=== PATIENT | female | born 2005 | race Two or more races ===

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

== ENCOUNTER 2024-05-03 05:28 | Emergency (ER) | payer MEDICAID ==
[~2024-05-03] VITALS: Ht 157.5 cm; Wt 171.0 kg
[2024-05-03 07:17] LABS: Basophils # (auto) 0.1 10 ^3/uL (0-0.2); Basophils % (auto) 0.8 % (0.0-2.0); Eosinophils # (auto) 0.2 10 ^3/uL (0-0.8); Eosinophils % (auto) 2.1 % (0.0-7.0); Hematocrit 39.6 % (36.0-46.0); Hemoglobin 13.5 g/dL (12.2-16.2); Lymphocytes # (auto) 2.5 10 ^3/uL (0.4-5.4); Lymphocytes % (auto) 27.7 % (10.0-50.0); Mean Corpuscular Hemoglobin 28.9 pg (28.0-32.0); Mean Corpuscular Hgb Conc. 34.1 g/dL (32.0-36.0); Monocytes # (auto) 0.9 10 ^3/uL (0-1.3); Monocytes % (auto) 9.5 % (0.0-12.0); Neutrophils # (auto) 5.4 10 ^3/uL (1.6-8.6); Neutrophils % (auto) 59.9 % (37.0-80.0); Nucleated Red Blood Cells % 0.3 %; Platelet Count (auto) 316 10^3/uL (140-450); Red Blood Cells 4.65 10^6/uL (4.0-5.20); Red Cell Distribution Width 13.6 % (11.8-14.3)
[2024-05-03 07:33] LABS: Chloride 106 mmol/L (98-107); Potassium 4.2 mmol/L (3.5-5.1); Sodium 140 mmol/L (136-145)
[2024-05-03 07:34] LABS: Anion Gap 8 (5-15); Carbon Dioxide 26 mmol/L (20-31)
[2024-05-03 07:35] LABS: Calcium 10.3 mg/dL (8.7-10.4)
[2024-05-03 07:39] LABS: Glucose 93 mg/dL (74-106)
[2024-05-03 07:40] LABS: BUN/Creatinine Ratio 12.2 (10.0-20.0); Blood Urea Nitrogen 9 mg/dL (9-23)
[2024-05-03] MEDS ORDERED: PANT40TA2 PO (08:10)
[2024-05-03] MEDS: PANTOPRAZOLE 40 MG TAB PO ONE (08:27)
[2024-05-03] MEDS: HYDROcodone-ACET 5/325MG TAB PO ONE (08:28)
[2024-05-03] MEDS ORDERED: CEPH250C PO (09:30)
[2024-05-03 09:36] VITALS: BP 107/74; PULSE 71; RESP 16; TEMP 98.4; O2SAT 99
== END 2024-05-03 09:40 | disposition home or self-care (01) ==
LOC: EDBD 05:28 → ER 05:28
DX: K56.7 Ileus, unspecified (principal); R10.2 Pelvic and perineal pain; K29.70 Gastritis, unspecified, without bleeding; Z79.899 Other long term (current) drug therapy
CPT/HCPCS: 36415; 80048; 84702; 85025

== ENCOUNTER 2024-08-02 10:24 | Inpatient (IN) | payer MEDICAID ==
[~2024-08-02] VITALS: Ht 157.5 cm; Wt 88.0 kg
[~2024-08-02 10:24] MED LIST: CEPH250C PO; PANT40TA2 PO
[2024-08-02] MEDS: ACETAMINOPHEN 325 MG TAB PO ONE (10:50)
[2024-08-02] MEDS: SODIUM CHLORIDE 0.9% 1,000 ML IV ONE (11:02)
[2024-08-02 11:32] LABS: Basophils # (auto) 0 10 ^3/uL (0-0.2); Basophils % (auto) 0.4 % (0.0-2.0); Eosinophils # (auto) 0 10 ^3/uL (0-0.8); Eosinophils % (auto) 0.5 % (0.0-7.0); Hematocrit 38.7 % (36.0-46.0); Hemoglobin 12.9 g/dL (12.2-16.2); Lymphocytes # (auto) 0.4 10 ^3/uL (0.4-5.4); Lymphocytes % (auto) 10.3 % (10.0-50.0); Mean Corpuscular Hemoglobin 28.3 pg (28.0-32.0); Mean Corpuscular Hgb Conc. 33.3 g/dL (32.0-36.0); Mean Corpuscular Volume 85.2 fL (80.0-100.0); Monocytes # (auto) 0.5 10 ^3/uL (0-1.3); Monocytes % (auto) 12.4 % (0.0-12.0); Neutrophils # (auto) 3.1 10 ^3/uL (1.6-8.6); Neutrophils % (auto) 76.4 % (37.0-80.0); Nucleated Red Blood Cells % 0.1 %; Platelet Count (auto) 196 10^3/uL (140-450); Red Blood Cells 4.54 10^6/uL (4.0-5.20)
[2024-08-02 11:36] LABS: Chloride 103 mmol/L (98-107); Potassium 3.7 mmol/L (3.5-5.1); Sodium 138 mmol/L (136-145)
[2024-08-02 11:37] LABS: Anion Gap 7 (5-15); Calcium 9.5 mg/dL (8.7-10.4); Carbon Dioxide 28 mmol/L (20-31)
[2024-08-02 11:46] LABS: Blood Urea Nitrogen < 5 mg/dL (9-23); Glucose 117 mg/dL (74-106)
[2024-08-02 12:05] LABS: Urine Bacteria None Seen /hpf (None Seen)
[2024-08-02 12:18] LABS: Urine Blood Negative /uL (Negative); Urine Clarity Clear (Clear); Urine Color Light-Yellow (Yellow); Urine Protein, UAD TRACE (Negative); Urine Specific Gravity 1.018 (1.001-1.035); Urine Squamous Epithelial Cell FEW /hpf (<5); Urine Urobilinogen Normal (Negative); Urine WBC 1 /hpf (0 - 5)
--- NOTE | 2024-08-02 12:24 | DVH ---
CHEST RADIOGRAPH Indication: sob Technique: Single frontal view of the chest was obtained Comparison: None FINDINGS: Lines and Tubes: None Lungs: No focal consolidation. Pleura: No effusion. No pneumothorax. Cardiomediastinal contours: Unremarkable Bones: No acute osseous abnormality. IMPRESSION: 1. No acute cardiopulmonary disease.
--- NOTE | 2024-08-02 12:54 | ED.PDOC ---
History of Present Illness HPI Comments 18 y/o F presents with c/o with c/o flu-like symptoms, today. Patient endorses on being ill for the past 5x days, with multiple symptoms that include: shortness of breath, wheezing, nausea, vomiting, headache, and generalized bodyaches. Patient comments on inhaler use, yesterday, with breathing difficulty being at its worse, with no relief or improvement. She informs on said inhaler being a left-over prescription to when she was last diagnosed with PNA in the past. She denies having any chest pain, palpitations, fever, chills, urinary symptoms, or other associated symptoms or modifiers at this time. Chief Complaint: Nausea/Vomiting Time Seen by MD: 10:30 Primary Care Provider: BIJALK Reviewed Notes: Nurses Notes, Medications, Allergies Allergies: Coded Allergies: Rubella Vaccine (Verified Allergy, Intermediate, 01/03/16) SWELLING Home Meds Active Scripts Cephalexin (KEFLEX CAPSULE) 250 Mg Cp, 250 MG PO QID for 5 Days, #20 BOTTLE Prov:JOSH GARCIA MD 05/03/24 Pantoprazole Sodium Sesquihydr (Protonix) 40 Mg Tab, 40 MG PO DAILY for 5 Days, #5 TAB Prov:JOSH GARCIA MD 05/03/24 Information Source: Patient Mode of Arrival: Ambulatory Severity: Moderate Timing: Days Duration: Since onset Prehospital treatment: Other (see HPI) Past Medical History Past Medical History (Other): PNA, obesity Surgical History: Denies all surgeries PROFILER OPERATOR History: No Pertinent PROFILER OPERATOR History Family History Family History: Unknown, Unobtainable Social History Smoker: Non-Smoker Alcohol: Denies ETOH Use Drugs: Denies Drug Use Lives In: Home Respiratory: reports: shortness of breath, wheezing Gastrointestinal: reports: nausea, vomiting Neurological: reports: headache Musculoskeletal: reports: others (generalized bodyaches) All Other Systems: Reviewed and Negative (negative unless otherwise stated abov e or in HPI) Physical Exam General Appearance: Moderate Distress HEENT: Normal ENT Inspection, Pharynx Normal, TMs Normal Neck: Full Range of Motion, Non-Tender, Normal, Normal Inspection Respiratory: Chest Non-Tender, No Accessory Muscle Use, No Respiratory Distress Cardiovascular: Tachycardia Breast Exam: Deferred Gastrointestinal: No Organomegaly, Non Tender, No Pulsatile Mass, Normal Bowel Sounds, Soft Genitalia: Deferred Pelvic: Deferred Rectal: Deferred Extremities: No calf tenderness, Normal capillary refill, Normal inspection, Normal range of motion, Non-tender, No pedal edema Musculoskeletal : Apperance: Normal Neurologic: Alert, quill machine tender II-XII nml as Tested, No Motor Deficits, Normal Affect, Normal Mood, No Sensory Deficits Cerebellar Function: NOT DONE Reflexes: NOT DONE Skin: Dry, Normal Color, Warm Peripheral Pulses: 3+ Radial (R), 3+ Radial (L) Lymphatic: No Adenopathy Was a procedure done? Was a procedure done?: No Differential Dx Considerations may include: PNA, bronchitis, covid19, influenza, URI, viral syndrome X-Ray, Labs, Meds, VS Vital Signs Date Time Temp Pulse Resp B/P (MAP) Pulse Ox O2 Delivery O2 Flow Rate FiO2 08/02/24 12:14 97.9 08/02/24 10:50 99.9 08/02/24 10:49 99.9 140 20 116/72 (87) 96 99.9 08/02/24 10:31 101.2 134 16 117/76 (90) 97 Lab Test 08/02/24 11:02 08/02/24 11:00 Range/Units White Blood Count 4.0 L 4.4-10.8 10^3/uL Red Blood Count 4.54 4.0-5.20 10^6/uL Hemoglobin 12.9 12.2-16.2 g/dL Hematocrit 38.7 36.0-46.0 % Mean Corpuscular Volume 85.2 80.0-100.0 fL Mean Corpuscular Hemoglobin 28.3 28.0-32.0 pg Mean Corpuscular Hemoglobin Concent 33.3 32.0-36.0 g/dL Red Cell Distribution Width 14.0 11.8-14.3 % Platelet Count 196 140-450 10^3/uL Mean Platelet Volume 8.2 6.9-10.8 fL Neutrophils (%) (Auto) 76.4 37.0-80.0 % Lymphocytes (%) (Auto) 10.3 10.0-50.0 % Monocytes (%) (Auto) 12.4 H 0.0-12.0 % Eosinophils (%) (Auto) 0.5 0.0-7.0 % Basophils (%) (Auto) 0.4 0.0-2.0 % Neutrophils # (Auto) 3.1 1.6-8.6 10 ^3/uL Lymphocytes # (Auto) 0.4 0.4-5.4 10 ^3/uL Monocytes # (Auto) 0.5 0-1.3 10 ^3/uL Eosinophils # (Auto) 0 0-0.8 10 ^3/uL Basophils # (Auto) 0 0-0.2 10 ^3/uL Nucleated Red Blood Cells 0.1 % Sodium Level 138 136-145 mmol/L Potassium Level 3.7 3.5-5.1 mmol/L Chloride Level 103 98-107 mmol/L Carbon Dioxide Level 28 20-31 mmol/L Anion Gap 7 5-15 Blood Urea Nitrogen < 5 L 9-23 mg/dL Creatinine 0.83 0.550-1.02 mg/dL Glomerular Filtration Rate Calc 104 >90 mL/min BUN/Creatinine Ratio 6.0 L 10.0-20.0 Serum Glucose 117 H 74-106 mg/dL Calcium Level 9.5 8.7-10.4 mg/dL Beta HCG, Quantitative 1.7 1.5-4.2 mIU/mL Urine Color Light-yellow Yellow Urine Clarity Clear Clear Urine pH 7.0 5.0-9.0 Urine Specific [place] 1.018 1.001-1.035 Urine Protein Trace H Negative Urine Ketones Negative Negative Urine Blood Negative Negative /uL Urine Nitrite Negative Negative Urine Bilirubin Negative Negative Urine Urobilinogen Normal Negative mg/dL Urine Leukocyte Esterase Negative Negative /uL Urine RBC 2 0 - 4 /hpf Urine WBC 1 0 - 5 /hpf Urine Squamous Epithelial Cells Few <5 /hpf Urine Bacteria None seen None Seen /hpf Urine Glucose Normal Normal mg/dL Current Medications Medications (Trade) Dose Ordered Sig/Javid Route Start Time Stop Time Status Last Admin Acetaminophen (Tylenol Tablet) 650 mg ONCE ONCE PO 08/02/24 10:45 08/02/24 10:46 DC 08/02/24 10:50 Sodium Chloride 1,000 ml @ 1,000 mls/hr Q1H ONCE IV 08/02/24 11:00 08/02/24 11:59 DC 08/02/24 11:[address] [address] Ph: [phone] DIAGNOSTIC IMAGING Diagnostic Imaging Report : [id number] Signed PATIENT: LINDA ANGUIANO ACCT: [id number] UNIT: [id number] : 2005 LOC: ER ROOM / BED: / AGE / SEX: 18 / F ADM STATUS: REG ER SERVICE 1053 ORDERING PHYSICIAN: JOSH GARCIA MD PROCEDURE(s): CXRP - CHEST PORTABLE REASON: sob ORDER NUMBER(s): [id number], ACCESSION NUMBER(s): [id number] CHEST RADIOGRAPH Indication: sob Technique: Single frontal view of the chest was obtained Comparison: None FINDINGS: Lines and Tubes: None Lungs: No focal consolidation. Pleura: No effusion. No pneumothorax. Cardiomediastinal contours: Unremarkable Bones: No acute osseous abnormality. IMPRESSION: 1. No acute cardiopulmonary disease. ATED BY: LILLIE NY MD DICTATED DATE/TIME: 08/02/24 122 SIGNED BY: LILLIE NY MD SIGNED DATE/TIME: 08/02/24 1221 CC: Patient alert. Tachycardia. Complaining of shortness a breath. Has fever. Possible viral. Continues to have discomfort. Establish intravenous access. Was given fluids pain Placed on oxygen. Explained to the patient. Continue cardiac monitoring. Chest x-ray reviewed does not show any acute changes. Time of 1ST Reevaluation: 11:00 Reevaluation 1ST: Unchanged Patient Education/Counseling: Diagnosis, Treatment Family Education/Counseling: No Family Present Additional Information I reviewed the following notes from patient's past medical encounters: ED physician documentation on 05/03/24 The following tests were ordered, and results were reviewed by me: Beta QUANT, BMP, CBC, UA, CXR I reviewed and agreed with the following test results read by other providers: CXR I discussed treatment and results with medical personnel Departure 1 Departure Time of Disposition: 13:23 Impression: Primary Impression: Acute respiratory distress Additional Impressions: Tachycardia Pneumonitis Disposition: ADMITTED INPATIENT Admit to: Med Surg Condition: Guarded Critical Care Note Critical Care Time?: No Stability Stability form required: No Heart Score Heart Score: Heart Score Response (Comments) Value History N/A 0 EKG N/A 0 Age N/A 0 Risk Factors N/A 0 Troponin N/A 0 Total 0 I personally scribed for JOSH GARCIA MD ([email or web address]) on 08/02/24 at 12:54. Electronically submitted by Kole Hamlin ([email or web address]). JOSH GARCIA MD Aug 02, 2024 12:54
--- NOTE | 2024-08-02 14:56 | DVHHP2 ---
History of Present Illness Reason for Visit: Flu-like symptoms History of Present Illness This 18-year-old female patient with past medical history of pneumonia presented in the ED with a chief complaint of flu-like symptoms started five days ago. Patient reports symptoms associated with productive cough with phlegm, fever, sh ortness of breath, body aches, and wheezing. Denies sick exposure. The patient denies difficulty in breathing or other acute symptoms. Past Medical History Pneumonia Past Surgical History Denies Family History Reviewed, non-contributory to the management of this case. Past Social History The patient lives at home, denies smoking, alcohol or illicit drugs abuse. Review of Systems Constitutional: Yes: Fever, Chills; No: Sweats, Weakness, Malaise, Other Eyes: No: Pain, Vision change, Conjunctivae inflammation, Eyelid inflammation, Other, Redness ENT: No: Ear pain, Ear discharge, Nose pain, Nose discharge, Nose congestion, Mouth pain, Mouth swelling, Throat pain, Throat swelling, Other Respiratory: Cough, Shortness of breath, Wheezing; No: Dry, SOB with excertion, Hemoptysis, Pleuritic Pain, Sputum, Wheezing, Other Cardiovascular: No: Chest Pain, Palpitations, Orthopnea, Paroxysmal Noc. Dyspnea, Edema, Lt Headedness, Other Gastrointestinal: No: Nausea, Vomiting, Abdominal Pain, Diarrhea, Constipation, Melena, Hematochezia, Other Genitourinary: No Dysuria, No Frequency, No Incontinence, No Hematuria, No Retention, No Other Musculoskeletal: No: other, neck pain, shoulder pain, arm pain, back pain, hand pain, leg pain, foot pain Skin: No: Rash, Lesions, Jaundice, Bruising, Other Neurological: No: Weakness, Numbness, Incoordination, Change in speech, Confusion, Seizures, Other Allergies: Coded Allergies: Rubella Vaccine (Verified Allergy, Intermediate, 01/03/16) SWELLING Exam Vital Signs Vital Signs Date Time Temp Pulse Resp B/P (MAP) Pulse Ox O2 Delivery O2 Flow Rate FiO2 08/02/24 12:14 97.9 08/02/24 10:49 140 20 116/72 (87) 96 General Appearance: Alert, Oriented X3, Cooperative, mild distress HEENT: Atraumatic, PERRLA, EOMI, Mucous membr. moist/pink Respiratory: Clear to auscultation, Normal air movement Cardiovascular: Regular rate, Normal S1, Normal S2, No murmurs Abdominal: Normal bowel sounds, Soft, No tenderness Extremities: No clubbing, No cyanosis, No edema, Normal pulses, No tenderness/swelling Skin: No rashes, No breakdown, No significant lesion Neuro: Normal gait, Normal tone Psych/Mental Status: Mental status NL Labs/Xrays Labs Test 08/02/24 11:02 08/02/24 11:00 Range/Units White Blood Count 4.0 L 4.4-10.8 10^3/uL Red Blood Count 4.54 4.0-5.20 10^6/uL Hemoglobin 12.9 12.2-16.2 g/dL Hematocrit 38.7 36.0-46.0 % Mean Corpuscular Volume 85.2 80.0-100.0 fL Mean Corpuscular Hemoglobin 28.3 28.0-32.0 pg Mean Corpuscular Hemoglobin Concent 33.3 32.0-36.0 g/dL Red Cell Distribution Width 14.0 11.8-14.3 % Platelet Count 196 140-450 10^3/uL Mean Platelet Volume 8.2 6.9-10.8 fL Neutrophils (%) (Auto) 76.4 37.0-80.0 % Lymphocytes (%) (Auto) 10.3 10.0-50.0 % Monocytes (%) (Auto) 12.4 H 0.0-12.0 % Eosinophils (%) (Auto) 0.5 0.0-7.0 % Basophils (%) (Auto) 0.4 0.0-2.0 % Neutrophils # (Auto) 3.1 1.6-8.6 10 ^3/uL Lymphocytes # (Auto) 0.4 0.4-5.4 10 ^3/uL Monocytes # (Auto) 0.5 0-1.3 10 ^3/uL Eosinophils # (Auto) 0 0-0.8 10 ^3/uL Basophils # (Auto) 0 0-0.2 10 ^3/uL Nucleated Red Blood Cells 0.1 % Sodium Level 138 136-145 mmol/L Potassium Level 3.7 3.5-5.1 mmol/L Chloride Level 103 98-107 mmol/L Carbon Dioxide Level 28 20-31 mmol/L Anion Gap 7 5-15 Blood Urea Nitrogen < 5 L 9-23 mg/dL Creatinine 0.83 0.550-1.02 mg/dL Glomerular Filtration Rate Calc 104 >90 mL/min BUN/Creatinine Ratio 6.0 L 10.0-20.0 Serum Glucose 117 H 74-106 mg/dL Calcium Level 9.5 8.7-10.4 mg/dL Beta HCG, Quantitative 1.7 1.5-4.2 mIU/mL Urine Color Light-yellow Yellow Urine Clarity Clear Clear Urine pH 7.0 5.0-9.0 Urine Specific [place] 1.018 1.001-1.035 Urine Protein Trace H Negative Urine Ketones Negative Negative Urine Blood Negative Negative /uL Urine Nitrite Negative Negative Urine Bilirubin Negative Negative Urine Urobilinogen Normal Negative mg/dL Urine Leukocyte Esterase Negative Negative /uL Urine RBC 2 0 - 4 /hpf Urine WBC 1 0 - 5 /hpf Urine Squamous Epithelial Cells Few <5 /hpf Urine Bacteria None seen None Seen /hpf Urine Glucose Normal Normal mg/dL PROCEDURE(s): CXRP - CHEST PORTABLE REASON: sob ORDER NUMBER(s): [id number], ACCESSION NUMBER(s): [id number] CHEST RADIOGRAPH Indication: sob Technique: Single frontal view of the chest was obtained Comparison: None FINDINGS: Lines and Tubes: None Lungs: No focal consolidation. Pleura: No effusion. No pneumothorax. Cardiomediastinal contours: Unremarkable Bones: No acute osseous abnormality. IMPRESSION: 1. No acute cardiopulmonary disease. Assessment/Plan Assessment/Plan # acute respiratory failure # rule out influenza A # rule out COVID # hx of pneumonia Admit to medical unit Med neb treatment O2 to keep O2 sat > 92% # obesity Lifestyle modification counseled with regular exercise, diet and weight loss Medical plan discussed with patient and mom at the bedside Plan discussed with: Patient Date of Service: Aug 02, 2024 Billing Provider: JOHNNIE BHAT Common Visit Codes: [id number] INP/OBS CARE (HIGH) JOHNNIE BHAT Aug 02, 2024 14:56
[2024-08-02] MEDS ORDERED: IPRATROPIUM BROM 0.5 MG/2.5ML INH SOL NEB PRN (15:00)
[2024-08-02] MEDS ORDERED: ALBUTEROL SULF 2.5 MG/0.5ML(0.5%) NEB SOLN NEB PRN (15:00)
[2024-08-02 15:03] VITALS: BP 116/72; PULSE 140; RESP 20; TEMP 97.9; O2SAT 96
[2024-08-02] MEDS: cefTRIAXone 1GM/50ML D5W 50 ML IV ONE (17:19)
[2024-08-02] MEDS: ACETAMINOPHEN 500 MG TAB or CAP PO ONE (17:32)
[2024-08-02] MEDS: ONDANSETRON HCL 4 MG/2 ML VIAL IV PRN (17:36)
[2024-08-02 18:00] LABS: COVID19 ANTIGEN SOFIA FIA NEGATIVE (NEGATIVE); Rapid Influenza B Negative (Negative)
[2024-08-02 18:03] LABS: Rapid Influenza A Positive (Negative)
[2024-08-02 19:08] VITALS: PULSE 113; RESP 18; O2SAT 95
[2024-08-02] MEDS: ALBUTEROL SULF 2.5 MG/0.5ML(0.5%) NEB SOLN NEB SCH (19:08)
[2024-08-02] MEDS: IPRATROPIUM BROM 0.5 MG/2.5ML INH SOL NEB SCH (19:08)
[2024-08-02 19:14] VITALS: PULSE 120; RESP 20; O2SAT 98
[2024-08-03] VITALS (19 sets, daily range): BP systolic 110–126; BP diastolic 64–77; PULSE 91–124; RESP 16–20; TEMP 98.4–100; O2SAT 90–100
--- NOTE | 2024-08-03 07:12 | DVH ---
CLINICAL INFORMATION: 18 years old, Female; shortness of breath. TECHNIQUE: Single AP portable chest radiograph was obtained. COMPARISON: XY CHEST PORTABLE on DOS: 08/02/24 FINDINGS: Lungs: Mild bilateral interstitial opacities, slightly greater in the right lung. No dense focal cons olidation visualized. Cardiac: Heart size is within normal limits. Pulmonary vasculature: Mild prominence of the pulmonary vasculature. Mediastinum/bill: Unremarkable. Bones: No acute osseous abnormality identified. Other: No other significant findings. IMPRESSION: Mild bilateral interstitial opacities, may be seen with atypical infectious process in the appropriat e clinical setting, including viral infection. Correlate with clinical findings.
[2024-08-03 11:21] LABS: Hematocrit 35.6 % (36.0-46.0); Hemoglobin 11.7 g/dL (12.2-16.2); Mean Corpuscular Hemoglobin 28.1 pg (28.0-32.0); Mean Corpuscular Volume 85.2 fL (80.0-100.0); Platelet Count (auto) 159 10^3/uL (140-450); Red Blood Cells 4.18 10^6/uL (4.0-5.20); Red Cell Distribution Width 13.8 % (11.8-14.3); White Blood Cell 2.3 10^3/uL (4.4-10.8)
[2024-08-03 11:29] LABS: Basophils % (manual) 0 (0.0-2.0); Blast Cells 0; Eosinophils % (manual) 0 (0-7); Metamyelocytes % 0; Myelocytes % 0; Promyelocytes % 0; Reactive Lymphocytes 0
[2024-08-03 11:45] LABS: Alanine Aminotransferase 16 U/L (7-40); Alkaline Phosphatase 72 U/L (46-116); Anion Gap 6 (5-15); Aspartate Aminotransferase 19 U/L (13-40); BUN/Creatinine Ratio 7.1 (10.0-20.0); Bilirubin, Total 0.2 mg/dL (0.2-1.0); Blood Urea Nitrogen < 5 mg/dL (9-23); Calcium 9.5 mg/dL (8.7-10.4); Carbon Dioxide 29 mmol/L (20-31); Chloride 104 mmol/L (98-107); Glucose 125 mg/dL (74-106); Potassium 3.5 mmol/L (3.5-5.1); Sodium 139 mmol/L (136-145); Total Protein 6.1 g/dL (5.7-8.2)
[2024-08-03 12:47] LABS: Band Neutrophils % (manual) 1; Lymphocytes % (manual) 39 (10.0-50.0); Monocytes % (manual) 18 (0-12)
[2024-08-03 12:48] LABS: Platelet Estimate Adequate
--- NOTE | 2024-08-03 16:40 | DVHPN2 ---
Progress Note Date Seen: Aug 03, 2024 Medical Necessity Reason Pt with a Central, PICC or Fol: No Subjective Patient reports: No new complaints Review of Systems: HEENT:Normal, CVS:Normal, RESPIRATORY:Normal, GI:Normal, :Normal, MSK:Normal, NEURO:Normal Objective vital signs Vital Sign Date Time Temp Pulse Resp B/P (MAP) Pulse Ox O2 Delivery O2 Flow Rate FiO2 08/03/24 14:46 98 16 99 08/03/24 14:40 Room Air* 0 21 08/03/24 13:00 98.7 117/68 (84) 98.7 Total Intake and Output 08/02/24 08/02/24 08/03/24 15:00 23:00 07:00 Intake Total 50 ml 900 ml Output Total 2400 ml Balance 50 ml -1500 ml medications Current Medications Medications Dose Ordered Sig/Javid Route Start Time Stop Time Status Last Admin Dose Admin Ondansetron HCl 4 mg Q4HP PRN IV 08/02/24 15:00 08/02/24 17:36 4 MG Albuterol 2.5 mg Q4HPRN PRN NEB 08/02/24 15:00 Albuterol 2.5 mg Q6HR NEB 08/02/24 18:00 08/03/24 14:40 2.5 MG Ipratropium [place] 0.5 mg Q4HPRN PRN NEB 08/02/24 15:00 Ipratropium [place] 0.5 mg Q6HR NEB 08/02/24 18:00 08/03/24 14:40 0.5 MG Examination: GENERAL:Normal, HEENT:Normal, NECK:Normal, LUNGS:Normal, CVS:Normal, ABDOMEN:Normal, MSK:Normal, SKIN:Normal, NEURO:Normal, :Normal laboratory and microbiology Laboratory Tests 08/03/24 10:40 Test 08/03/24 10:40 Range/Units Serum Glucose 125 H 74-106 mg/dL Problem List/Assessment/Plan Problem List/Assessment/Plan #1 sepsis with influenza pneumonia: ivf, tamiflu, iv antibiotics, steroids #2 obesity Plan discussed with: Patient Date of Service: Aug 03, 2024 Billing Provider: ANITHA ROSE MD Common Visit Codes: [id number] INP/OBS CARE(HIGH) ANITHA ROSE MD Aug 03, 2024 16:40
[2024-08-03] MEDS ORDERED: ACETAMINOPHEN 325 MG TAB PO PRN (16:45)
[2024-08-03] MEDS ORDERED: OSELTAMIVIR 75 MG CAP PO ONE (16:45)
[2024-08-03] MEDS ORDERED: methylPREDNISolone SOD SUCC 40 MG/ML VL IV ONE (16:45)
[2024-08-03] MEDS: methylPREDNISolone SOD SUCC 40 MG/ML VL IV SCH (18:25)
[2024-08-03] MEDS: SODIUM CHLORIDE 0.9% 1,000 ML IV SCH (18:25)
[2024-08-03] MEDS: OSELTAMIVIR 75 MG CAP PO SCH (18:25)
[2024-08-03] MEDS: AZITHROMYCIN 500MG/ 250ML 250 ML IV ONE (18:43)
[2024-08-04] VITALS (10 sets, daily range): BP systolic 105–121; BP diastolic 64–72; PULSE 84–106; RESP 14–20; TEMP 36.8; O2SAT 95–100
[2024-08-04 07:34] LABS: Basophils # (auto) 0 10 ^3/uL (0-0.2); Basophils % (auto) 0.1 % (0.0-2.0); Eosinophils # (auto) 0 10 ^3/uL (0-0.8); Hematocrit 38.3 % (36.0-46.0); Hemoglobin 12.7 g/dL (12.2-16.2); Lymphocytes # (auto) 0.8 10 ^3/uL (0.4-5.4); Lymphocytes % (auto) 23.1 % (10.0-50.0); Mean Corpuscular Hemoglobin 28.2 pg (28.0-32.0); Mean Corpuscular Hgb Conc. 33.2 g/dL (32.0-36.0); Mean Corpuscular Volume 84.9 fL (80.0-100.0); Monocytes # (auto) 0.3 10 ^3/uL (0-1.3); Monocytes % (auto) 7.7 % (0.0-12.0); Neutrophils # (auto) 2.4 10 ^3/uL (1.6-8.6); Neutrophils % (auto) 69.1 % (37.0-80.0); Platelet Count (auto) 195 10^3/uL (140-450); Red Blood Cells 4.51 10^6/uL (4.0-5.20); Red Cell Distribution Width 13.9 % (11.8-14.3); White Blood Cell 3.5 10^3/uL (4.4-10.8)
[2024-08-04 07:41] LABS: Calcium 9.9 mg/dL (8.7-10.4); Chloride 105 mmol/L (98-107); Potassium 4.4 mmol/L (3.5-5.1); Sodium 140 mmol/L (136-145)
[2024-08-04 07:42] LABS: Anion Gap 8 (5-15); Carbon Dioxide 27 mmol/L (20-31)
[2024-08-04 07:53] LABS: Glucose 121 mg/dL (74-106)
[2024-08-04 07:54] LABS: BUN/Creatinine Ratio 7.7 (10.0-20.0); Blood Urea Nitrogen < 5 mg/dL (9-23)
[2024-08-04] MEDS: AZITHROMYCIN 500MG/ 250ML 250 ML IV SCH (11:21)
--- NOTE | 2024-08-04 13:11 | DVHDS2 ---
Discharge Summary Date of Admission Aug 02, 2024 at 14:52 Date of Discharge: Aug 04, 2024 Labs/Diagnostic Data: Laboratory Results Test 08/04/24 06:31 08/03/24 10:40 08/02/24 17:21 08/02/24 11:02 White Blood Count 3.5 10^3/uL (4.4-10.8) Red Blood Count 4.51 10^6/uL (4.0-5.20) Hemoglobin 12.7 g/dL (12.2-16.2) Hematocrit 38.3 % (36.0-46.0) Mean Corpuscular Volume 84.9 fL (80.0-100.0) Mean Corpuscular Hemoglobin 28.2 pg (28.0-32.0) Mean Corpuscular Hemoglobin Concent 33.2 g/dL (32.0-36.0) Red Cell Distribution Width 13.9 % (11.8-14.3) Platelet Count 195 10^3/uL (140-450) Mean Platelet Volume 8.1 fL (6.9-10.8) Neutrophils (%) (Auto) 69.1 % (37.0-80.0) Lymphocytes (%) (Auto) 23.1 % (10.0-50.0) Monocytes (%) (Auto) 7.7 % (0.0-12.0) Eosinophils (%) (Auto) 0.0 % (0.0-7.0) Basophils (%) (Auto) 0.1 % (0.0-2.0) Neutrophils # (Auto) 2.4 10 ^3/uL (1.6-8.6) Lymphocytes # (Auto) 0.8 10 ^3/uL (0.4-5.4) Monocytes # (Auto) 0.3 10 ^3/uL (0-1.3) Eosinophils # (Auto) 0 10 ^3/uL (0-0.8) Basophils # (Auto) 0 10 ^3/uL (0-0.2) Nucleated Red Blood Cells 0.0 % Sodium Level 140 mmol/L (136-145) Potassium Level 4.4 mmol/L (3.5-5.1) Chloride Level 105 mmol/L (98-107) Carbon Dioxide Level 27 mmol/L (20-31) Anion Gap 8 (5-15) Blood Urea Nitrogen < 5 mg/dL (9-23) Creatinine 0.65 mg/dL (0.550-1.02) Glomerular Filtration Rate Calc 130 mL/min (>90) BUN/Creatinine Ratio 7.7 (10.0-20.0) Serum Glucose 121 mg/dL (74-106) Calcium Level 9.9 mg/dL (8.7-10.4) Differential Total Cells Counted 100.0 (100) Neutrophils % (Manual) 42 (37.0-80.0) Band Neutrophils % (Manual) 1 Lymphocytes % (Manual) 39 (10.0-50.0) Monocytes % (Manual) 18 (0-12) Eosinophils % (Manual) 0 (0-7) Basophils % (Manual) 0 (0.0-2.0) Metamyelocytes % (manual) 0 Myelocytes % (Manual) 0 Promyelocytes % (Manual) 0 Blast Cells % (Manual) 0 Reactive Lymphocytes 0 Platelet Estimate Adequate Total Bilirubin 0.2 mg/dL (0.2-1.0) Aspartate Amino Transferase (AST) 19 U/L (13-40) Alanine Aminotransferase (ALT) 16 U/L (7-40) Alkaline Phosphatase 72 U/L (46-116) Total Protein 6.1 g/dL (5.7-8.2) Albumin 4.0 g/dL (3.2-4.8) Influenza Type A Antigen Positive (Negative) Influenza Type B Antigen Negative (Negative) SARS-CoV-2 Antigen (Rapid) Negative (NEGATIVE) Beta HCG, Quantitative 1.7 mIU/mL (1.5-4.2) Test 08/02/24 11:00 Urine Color Light-yellow (Yellow) Urine Clarity Clear (Clear) Urine pH 7.0 (5.0-9.0) Urine Specific [place] 1.018 (1.001-1.035) Urine Protein Trace (Negative) Urine Ketones Negative (Negative) Urine Blood Negative /uL (Negative) Urine Nitrite Negative (Negative) Urine Bilirubin Negative (Negative) Urine Urobilinogen Normal mg/dL (Negative) Urine Leukocyte Esterase Negative /uL (Negative) Urine RBC 2 /hpf (0 - 4) Urine WBC 1 /hpf (0 - 5) Urine Squamous Epithelial Cells Few /hpf (<5) Urine Bacteria None seen /hpf (None Seen) Urine Glucose Normal mg/dL (Normal) Other Laboratory Tests 08/04/24 06:31 Brief Hx & Hospital Course: see dictated note Condition at Discharge: Good Final Diagnosis/Problems List influenza Discharge Disposition: Home Discharge Instruct/Medications Diet: Regular Activity: No Restrictions, As Tolerated Follow Up/Referral: fu with pcp in 1 wk Medications: script to pharmacy Discharge Statement: "Patient was advised to return to the ER or call 911 if any headaches, dizziness, shortness of breath, chest pain, abdominal pain, bleeding, fevers, or worsening of medical condition. Patient was counseled about treatment plan, medications, possible side effects, patientverbalized understanding. All questions were answered to the best of my ability. This discharge took greater then 30 minutes in planning, reviewing documentation, counseling the patient, and discussing with other team members." ASSESSMENT ASSESSMENT Assessment influenza Date of Service: Aug 04, 2024 Billing Provider: ANITHA ROSE MD Common Visit Codes: [id number] DISCH DAY >30min ANITHA ROSE MD Aug 04, 2024 13:11
[2024-08-04] MEDS ORDERED: PRED20TA2 PO (13:13)
[2024-08-04] MEDS ORDERED: OSEL75CA5 PO (13:13)
[2024-08-04] MEDS ORDERED: AZITTAB2 PO (13:13)
--- NOTE | 2024-08-04 13:42 | DVHDS ---
DATE OF DISCHARGE: 08/04/2024 HISTORY OF PRESENT ILLNESS: The patient is a 18-year-old lady who came with history of cough, shortness of breath, wheezing and body aches. HOSPITAL COURSE: The patient had a chest x-ray that showed bilateral interstitial opacities. The patient was influenza A positive. She was placed on treatment with steroids along with Tamiflu. The patient's symptoms are now improved. The patient had a temperature of 103 at admission. She will now be discharged home to be on Zithromax 500 mg daily for 3 days, Tamiflu 75 mg p.o. b.i.d. for 5 days and prednisone 20 mg daily for 5 days. She will followup with her primary in 1 week. FINAL DIAGNOSES: Therefore, * Sepsis with influenza pneumonia. * Obesity. Time spent in discharge planning and review of plan with the patient and family was 38 minutes. MD WARREN Abreu/JULIANE TID: [id number] RECEIPT: [id number]
== END 2024-08-04 16:30 | disposition home or self-care (01) | DRG 720 ==
LOC: ER 10:24 → OVERFLOW 14:52 → WEST WING 08-03 02:35
PROVIDERS: ADMIT Registered Nurse; ATTEND Internal Medicine
DX: A41.89 Other specified sepsis (principal); E66.9 Obesity, unspecified; J10.01 Influenza due to other identified influenza virus with the same other identified influenza virus pneumonia; J98.4 Other disorders of lung; Z20.822 Contact with and (suspected) exposure to COVID-19; Z88.7 Allergy status to serum and vaccine; R06.03 Acute respiratory distress; Z68.54 Body mass index [BMI] pediatric, 95th percentile for age to less than 120% of the 95th percentile for age
CPT/HCPCS: 36415; 71045; 80048; 80053; 81001; 84702; 85007; 85025; 85027; 87426; 87804; 94640; 96365; 96375; G0378; J2405

== ENCOUNTER → 2024-10-21 | Outpatient (CLI) | payer MEDICAID ==
[~2024-10-21] MED LIST changes: +AZITTAB2 PO; +OSEL75CA5 PO; +PRED20TA2 PO
[2024-10-21 10:23] LABS: Basophils # (auto) 0.1 10 ^3/uL (0-0.2); Basophils % (auto) 0.9 % (0.0-2.0); Eosinophils # (auto) 0.3 10 ^3/uL (0-0.8); Eosinophils % (auto) 4.5 % (0.0-7.0); Hematocrit 41.6 % (36.0-46.0); Hemoglobin 14.1 g/dL (12.2-16.2); Lymphocytes # (auto) 1.9 10 ^3/uL (0.4-5.4); Lymphocytes % (auto) 30.6 % (10.0-50.0); Mean Corpuscular Hemoglobin 28.9 pg (28.0-32.0); Mean Corpuscular Volume 84.9 fL (80.0-100.0); Monocytes # (auto) 0.4 10 ^3/uL (0-1.3); Monocytes % (auto) 6.9 % (0.0-12.0); Neutrophils # (auto) 3.5 10 ^3/uL (1.6-8.6); Neutrophils % (auto) 57.1 % (37.0-80.0); Nucleated Red Blood Cells % 0.1 %; Platelet Count (auto) 309 10^3/uL (140-450); Red Cell Distribution Width 14.2 % (11.8-14.3); White Blood Cell 6.2 10^3/uL (4.4-10.8)
[2024-10-21 10:33] LABS: Alanine Aminotransferase 25 U/L (7-40); Alkaline Phosphatase 92 U/L (46-116); Anion Gap 6 (5-15); Aspartate Aminotransferase 15 U/L (13-40); BUN/Creatinine Ratio 12.3 (10.0-20.0); Calcium 9.8 mg/dL (8.7-10.4); Carbon Dioxide 27 mmol/L (20-31); Chloride 106 mmol/L (98-107); Glucose 90 mg/dL (74-106); Sodium 139 mmol/L (136-145); Total Protein 7.5 g/dL (5.7-8.2)
[2024-10-21 10:34] LABS: Bilirubin, Total 0.4 mg/dL (0.2-1.0)
[2024-10-21 10:40] LABS: Albumin 4.9 g/dL (3.2-4.8); Blood Urea Nitrogen 9 mg/dL (9-23)
[2024-10-21 11:09] LABS: Leuteinizing Hormone 2.6 IU/L
[2024-10-21 11:10] LABS: Free T3 3.42 pg/mL (2.3-4.2); Prolactin 18.05 ng/mL (2.8-29.2)
[2024-10-21 11:11] LABS: Free T4 (Free Thyroxine) 1.25 ng/dL (0.89-1.76)
[2024-10-22 08:07] LABS: Estradiol 23.6 pg/mL (.)
== END | disposition home or self-care (01) ==
LOC: LAB 09:45
DX: Z01.419 Encounter for gynecological examination (general) (routine) without abnormal findings (principal); E28.2 Polycystic ovarian syndrome
CPT/HCPCS: 36415; 80053; 82626; 82670; 83002; 83036; 84146; 84403; 84439; 84443; 84481; 85025